=== PATIENT | female | born 1990 | race American Indian/Alaskan Native ===

== ENCOUNTER 2022-03-15 16:45 | Outpatient (CLI) | payer MEDICAID ==
[2022-03-15 17:33] VITALS: BP 96/67
--- NOTE | 2022-03-15 18:17 | Ultrasound Report ---
ULTRASOUND OBSTETRIC LIMITED ULTRASOUND BIOPHYSICAL PROFILE INDICATION / CLINICAL INFORMATION: bpp. COMPARISON: None available. FINDINGS: BREATHING MOVEMENT = 2 GROSS BODY MOVEMENT = 2 TONE = 2 QUALITATIVE AMNIOTIC FLUID VOLUME = 2 TOTAL BIOPHYSICAL SCORE = 8/8 HEART RATE (beats per minute): 130 PRESENTATION: Cephalic. ADDITIONAL FINDINGS: None. IMPRESSION: 1. Biophysical Score = 8/8 Signer Name: Stu Wells MD Signed: 03/15/2022 6:12 PM Workstation Name: [email or web address]
[2022-03-15] MEDS ORDERED: LACTATED RINGERS 500 ML IV ONE (18:43)
== END 2022-03-15 19:00 | disposition home or self-care (01) ==
LOC: TRG 16:45 → APU 16:49 → TRG 19:00
PROVIDERS: ATTEND Student in an Organized Health Care Education/Training Program
DX: Z34.93 Encounter for supervision of normal pregnancy, unspecified, third trimester (principal); Z3A.34 34 weeks gestation of pregnancy
CPT/HCPCS: 59025; 76819

== ENCOUNTER 2022-03-31 13:15 | Outpatient (CLI) | payer MEDICAID ==
[2022-03-31] MEDS ORDERED: LACTATED RINGERS 500 ML IV ONE (13:25)
[2022-03-31 15:52] VITALS: BP 115/79
--- NOTE | 2022-03-31 18:56 | Ultrasound Report ---
ULTRASOUND OBSTETRIC LIMITED ULTRASOUND BIOPHYSICAL PROFILE INDICATION / CLINICAL INFORMATION: wellbeing, IUGR. Clinical Gestational Age (GA): 37.5 weeks.days COMPARISON: 03/15/2022 FINDINGS: BREATHING MOVEMENT = 2 GROSS BODY MOVEMENT = 2 TONE = 2 QUALITATIVE AMNIOTIC FLUID VOLUME = 2 TOTAL BIOPHYSICAL SCORE = 8/8 HEART RATE (beats per minute): 146 PRESENTATION: Cephalic. ADDITIONAL FINDINGS: None. IMPRESSION: 1. Biophysical Score = 8/8 Signer Name: Stu Wells MD Signed: 03/31/2022 6:52 PM Workstation Name: [id number]
== END 2022-03-31 17:50 | disposition home or self-care (01) ==
LOC: TRG 13:15 → APU 13:17 → TRG 17:50
PROVIDERS: ATTEND Obstetrics & Gynecology
DX: O36.8330 Maternal care for abnormalities of the fetal heart rate or rhythm, third trimester, not applicable or unspecified (principal); Z3A.37 37 weeks gestation of pregnancy
CPT/HCPCS: 59025; 76819

== ENCOUNTER 2022-04-06 00:12 | Inpatient (IN) | payer MEDICAID ==
--- NOTE | 2022-04-06 00:17 | History and Physical Report ---
History of Present Illness Date of examination: 04/06/22 Date of admission: 04/06/2022 Chief complaint: I'm here for my induction. History of present illness: Pt is a 32 y.o. @ 39.4 wks who presented for an IOL d/t IUGR. Her last growth and BPP u/s was on 03/24 with the following results: BPP 8/8, EFW 5-7 (10th%). EDC Confirmation: 04/16/2022 Gestational Age: 38.4 weeks on admission Past History : 3 Term Births: 2 Premature Births: 0 Living Children: 2 Para: 2 Mult. Births: 0 Prev : 0 Aborta: 0 Elect. Ab: 0 Spont. Ab: 0 Ectopics: 0 # 1 Delivery date: 2010 Weeks Gestation: term labor: no Delivery type: Hours of labor: 14 Anesthesia type: epidural Delivery location: [facility] Sex: Female weight: [id number] Comments: fetus with dilated kidney on ultrasound, surgery needed @4yo # 2 Delivery date: 2018 Weeks Gestation: term labor: no Delivery type: Hours of labor: 14 Anesthesia type: epidural Delivery location: [facility] [facility] Sex: Male weight: [id number] Comments: fetus with dilated kidney on ultrasound, surgery not needed Past Medical History: Reviewed and updated today: Cellulitis on face- 2020 seen 4 dermatologists and taken 4 antibiotics, seen @[facility] and received IM antibiotic Past Surgical History: Reviewed and updated today: [id number]- 02/2021 Denies any prior history of complications from anesthesia. Denies any history of surgical complications. Family History Summary: First Degree Blood Relative - Has No Known Family History - Entered On: Social History: Smoking History: Patient has never smoked. Risk Factors: Smoked Tobacco Use: Never smoker Smokeless Tobacco Use: Never Counseled to Quit/Cut Down: yes Passive Smoke Exposure: no HIV High Risk Behavior: no Caffeine Use: 0 drinks per day Exercise: no Exercise Counseling: yes Seatbelt Use: 100 % Family History Risk Factors: Family History of MS in 1 Female Relative Age < 65: no Family History of MS in 1 Male Relative Age < 55: no No Dietary Counseling Reason: pn yes PAP Smear History: Date of Last PAP Smear: 06/07/2021 Results: Normal Alcohol Use: no Drug Use: no Past Medical History Anesthesia Complications: negative Anemia: negative Autoimmune Disorder: negative Bleeding Disorder: negative Blood Transfusions: negative Breast Disease: negative Diabetes: negative Heart Disease: negative Hypertension: negative Hepatitis/Liver Disease: negative Kidney Disease/UTI: negative Neurologic/Epilepsy/Migraines: negative Phlebitis/Varicosities: negative Psychiatric: negative Pulmonary Disease/Asthma: negative Thyroid Disease: negative Surgery (Non-microbiological laboratory technician): [id number]- 02/2021 Denies any prior history of complications from anesthesia. Denies any history of surgical complications. Abnormal PAP: negative, normal pap 3 mos ago per pt report TEJAS Exposure: negative Infertility: negative Uterine Anomaly: negative Uterine Surgery (not C/S): negative Other Gynecologic Problems: negative Social Hx: Smoking History: Patient has never smoked. Infection History Hx of STD: none HIV Risk Eval: no Hepatitis B Risk Eval: low risk Personal hx. of genital herpes: no Partner hx. of genital herpes: no Rash, Viral, or Febrile illness since last LMP? no Varicella/Chicken Pox Status: Previous Disease TB Risk: no Genetic History Congenital Heart Defect: Mom: no Dad: no Maame Disease: Mom: no Dad: no Thalassemia Mom: no Dad: no Neural Tube Defect Mom: no Dad: no Down's Syndrome Mom: no Dad: no Clifton-Sachs Mom: no Dad: no Sickle Cell Disease/Trait Mom: no Dad: no Hemophilia Mom: no Dad: no Muscular Dystrophy Mom: no Dad: no Cystic Fibrosis Mom: no Dad: no [place] Chorea Mom: no Dad: no Mental Retardation Mom: no Dad: no Fragile X Mom: no Dad: no Other Genetic/Chromosomal Disorder Mom: no Dad: no Child w/other defect Mom: no Dad: no Enviromental Exposures Enviromental Exposures Reviewed Xray Exposure: no Medication, drug, or alcohol use since LMP: no Chemical/Other Exposure: no Exposure to Cat Liter: no Hx of Parvovirus (Fifth Disease): no Occupational Exposure to Children: none Active Medications (reviewed today): None Current Allergies (reviewed today): No known allergies Past History Past Medical History: other (Cellulitis (face)) Past Surgical History: other (Lipo suction) Family/Genetic History: none Social history: no significant social history - Obstetrical History Expected Date of Delivery: 04/16/22 Actual Gestation: 38 Week(s) 4 Day(s) : 3 Para: 2 Hx # Term Pregnancies: 2 Number of Pregnancies: 0 Spontaneous Abortions: 0 Induced : 0 Number of Living Children: 2 Medications and Allergies Allergies Allergy/AdvReac Type Severity Reaction Status Date / Time No Known Allergies Allergy Verified 03/31/22 15:12 Review of Systems All systems: negative - Physical Exam Cardiovascular: Regular rate Lungs: Positive: Normal air movement Abdomen: Positive: normal appearance, soft Genitourinary (Female): Positive: normal external genitalia, normal perenium Vulva: both: normal Uterus: Positive: enlarged ( uterus) - Obstetrical FHR: category 1 Uterine Contraction Monitor Mode: External Cervical Dilatation: 1 Cervical Effacement Percentage: 50 station: -3 Uterine Contraction Pattern: Irregular Uterine Tone Measurement Phase: Resting Uterine Contraction Intensity: Mild Results Result Diagrams: 04/06/22 01:20 All other labs normal. GBS NEGATIVE HBsAg Screen Negative Negative *1 RPR Non Reactive Non Reactive *2 Rubella Antibodies, IgG 1.21 index Immune >0.99 *3 Non-immune <0.90 Equivocal 0.90 - 0.99 Immune >0.99 ABO Grouping O *4 Rh Factor Positive *5 Please note: Prior records for this patient's ABO / Rh type are not available for additional verification. Antibody Screen Negative Negative *6 Tests: (2) HIV Ab/p24 Ag with Reflex ([id number]) HIV Ab/p24 Ag Screen Non Reactive Non Reactive *31 HIV Negative HIV-1/HIV-2 antibodies and HIV-1 p24 antigen were NOT detected. There is no laboratory evidence of HIV infection. Tests: (3) HCV Antibody reflex to VANNESSA ([id number]) HCV Ab <0.1 s/co ratio 0.0-0.9 *32 Tests: (4) Interpretation: ([id number]) ! Interpretation: SPRCS *33 Negative Not infected with HCV, unless recent infection is suspected or other evidence exists to indicate HCV infection. Assessment and Plan A: 32 y.o. @ 38.4 wks, IOL d/t IUGR. - Patient Problems (1) IUGR (intrauterine growth restriction) affecting care of mother Current Visit: Yes Status: Acute Qualifiers: Fetus number: single or unspecified fetus Trimester: third trimester Qualified Code(s): O36.5930 - Maternal care for other known or suspected poor growth, third trimester, not applicable or unspecified Plan to address problem: Admit to labor and delivery. Initiate IV. Draw admission labs. Pain management: IV pain medication and epidural when desired. Initiate IOL with low dose Pitocin. If cervical exam the same later on this AM will allow pt to shower, eat, then restart Pitocin per protocol. (2) with 38 completed weeks gestation Current Visit: Yes Status: Acute Plan to address problem: Monitor status through EFM.
[2022-04-06] MEDS ORDERED: MINERAL OIL 30 ML ORAL LIQD PO PRN (00:56)
[2022-04-06] MEDS ORDERED: LOPERAMIDE 2 MG CAP PO PRN (00:56)
[2022-04-06] MEDS ORDERED: NALOXONE 0.4 MG/1 ML INJ IV PRN (00:56)
[2022-04-06] MEDS ORDERED: BUTORPHANOL 2 MG/1 ML INJ IV PRN (00:56)
[2022-04-06] MEDS ORDERED: TERBUTALINE 1 MG/1 ML INJ SUB-Q PRN (00:56)
[2022-04-06] MEDS ORDERED: PROMETHAZINE 25 MG TAB PO PRN (00:56)
[2022-04-06] MEDS ORDERED: miSOPROStol 200 MCG TAB PR PRN (00:56)
[2022-04-06] MEDS ORDERED: fentaNYL 100 MCG/2 ML INJ IV PRN (00:56)
[2022-04-06] MEDS ORDERED: METHYLERGONOVINE MALEATE 0.2 MG/ML VIAL IM PRN (00:56)
[2022-04-06] MEDS ORDERED: CARBOPROST TROMETHAMINE 250 MCG/1 ML INJ IM PRN (00:56)
[2022-04-06] MEDS ORDERED: ONDANSETRON 4 MG/2 ML INJ IV PRN (00:56)
[2022-04-06] MEDS ORDERED: ePHEDrine SULFATE 50 MG/1 ML INJ IV PRN (00:56)
[2022-04-06] MEDS ORDERED: OXYTOCIN 10 UNIT/1 ML INJ IM PRN (00:56)
[2022-04-06] MEDS ORDERED: LIDOCAINE (2%) 20 MG/1 ML VIAL 20 ML MDV INFILTRATI ONE (00:56)
[2022-04-06] MEDS ORDERED: ACETAMINOPHEN 325 MG TAB PO PRN (00:56)
[2022-04-06] MEDS ORDERED: OXYTOCIN DRIP 30 UNITS/500 ML BAG IV SCH (01:00)
[2022-04-06] MEDS: LACTATED RINGERS 1,000 ML IV SCH ×2 (02:04→11:54)
[2022-04-06] MEDS: OXYTOCIN DRIP 30 UNITS/500 ML BAG IV SCH ×3 (02:05→12:21)
[2022-04-06 02:13] LABS: Hemoglobin 10.7 gm/dl (10.1-14.3); Mean Corpuscular HGB Conc 35 % (30-34); Mean Corpuscular Volume 90 fl (79-97); Platelet Count 242 K/mm3 (140-440); Red Blood Count 3.44 M/mm3 (3.65-5.03); Red Cell Distribution Width 14.1 % (13.2-15.2)
--- NOTE | 2022-04-06 07:41 | Progress Note ---
Assessment and Plan A: 32 y.o. @ 38.4 wks, IOL d/t IUGR. - Patient Problems (1) IUGR (intrauterine growth restriction) affecting care of mother Current Visit: Yes Status: Acute Qualifiers: Fetus number: single or unspecified fetus Trimester: third trimester Qualified Code(s): O36.5930 - Maternal care for other known or suspected poor growth, third trimester, not applicable or unspecified Plan to address problem: Continue with IOL. Will allow patient to shower, eat. After shower and breakfast, start Pitocin per protocol. (2) with 38 completed weeks gestation Current Visit: Yes Status: Acute Plan to address problem: Monitor status through EFM. Subjective - Subjective Date of service: 04/06/22 Principal diagnosis: IUP @ 38.4 wks, Patient reports: movement normal, no new complaints, no loss of fluid, no vaginal bleeding, no contractions Objective - Vital Signs Vital Signs: Vital Signs - 12hr 04/06/22 04/06/22 04/06/22 00:58 00:59 01:00 Temperature 98.7 F Pulse Rate 97 H 104 H 97 H Respiratory 18 Rate Blood Pressure 112/73 Blood Pressure 112/73 [Right] O2 Sat by Pulse 96 99 Oximetry 04/06/22 04/06/22 04/06/22 01:05 01:10 01:15 Temperature Pulse Rate 115 H 101 H 110 H Respiratory Rate Blood Pressure Blood Pressure [Right] O2 Sat by Pulse 100 99 100 Oximetry 04/06/22 04/06/22 04/06/22 01:20 01:25 01:30 Temperature Pulse Rate 109 H 103 H 102 H Respiratory Rate Blood Pressure Blood Pressure [Right] O2 Sat by Pulse 98 100 99 Oximetry 04/06/22 04/06/22 04/06/22 01:35 01:40 01:45 Temperature Pulse Rate 102 H 110 H 106 H Respiratory Rate Blood Pressure Blood Pressure [Right] O2 Sat by Pulse 100 100 100 Oximetry 04/06/22 04/06/22 04/06/22 01:50 01:55 02:00 Temperature Pulse Rate 109 H 105 H 105 H Respiratory Rate Blood Pressure Blood Pressure [Right] O2 Sat by Pulse 99 100 99 Oximetry 04/06/22 04/06/22 04/06/22 02:05 02:10 02:15 Temperature Pulse Rate 104 H 99 H 101 H Respiratory Rate Blood Pressure Blood Pressure [Right] O2 Sat by Pulse 100 97 100 Oximetry 04/06/22 04/06/22 04/06/22 02:20 02:25 02:30 Temperature Pulse Rate 97 H 96 H 99 H Respiratory Rate Blood Pressure Blood Pressure [Right] O2 Sat by Pulse 99 99 99 Oximetry 04/06/22 04/06/22 04/06/22 02:35 02:40 02:45 Temperature Pulse Rate 100 H 109 H 101 H Respiratory Rate Blood Pressure Blood Pressure [Right] O2 Sat by Pulse 99 99 100 Oximetry 04/06/22 04/06/22 04/06/22 02:50 02:55 03:00 Temperature Pulse Rate 97 H 107 H 92 H Respiratory Rate Blood Pressure Blood Pressure [Right] O2 Sat by Pulse 99 99 99 Oximetry 04/06/22 04/06/22 04/06/22 03:07 03:12 03:17 Temperature Pulse Rate 107 H 98 H 94 H Respiratory Rate Blood Pressure Blood Pressure [Right] O2 Sat by Pulse 100 99 99 Oximetry 04/06/22 04/06/22 04/06/22 03:22 03:27 03:32 Temperature Pulse Rate 107 H 95 H 105 H Respiratory Rate Blood Pressure Blood Pressure [Right] O2 Sat by Pulse 100 99 98 Oximetry 04/06/22 04/06/22 04/06/22 03:37 03:42 03:47 Temperature Pulse Rate 98 H 105 H 103 H Respiratory Rate Blood Pressure Blood Pressure [Right] O2 Sat by Pulse 99 99 99 Oximetry 04/06/22 04/06/22 04/06/22 03:52 03:57 04:02 Temperature Pulse Rate 98 H 101 H 101 H Respiratory Rate Blood Pressure Blood Pressure [Right] O2 Sat by Pulse 99 99 99 Oximetry 04/06/22 04/06/22 04/06/22 04:07 04:12 04:17 Temperature Pulse Rate 100 H 103 H 99 H Respiratory Rate Blood Pressure Blood Pressure [Right] O2 Sat by Pulse 99 99 99 Oximetry 04/06/22 04/06/22 04/06/22 04:22 04:27 04:32 Temperature Pulse Rate 97 H 99 H 98 H Respiratory Rate Blood Pressure Blood Pressure [Right] O2 Sat by Pulse 99 98 99 Oximetry 04/06/22 04/06/22 04/06/22 04:37 04:42 04:47 Temperature Pulse Rate 102 H 97 H 94 H Respiratory Rate Blood Pressure Blood Pressure [Right] O2 Sat by Pulse 99 99 98 Oximetry 04/06/22 04/06/22 04/06/22 04:52 05:05 05:10 Temperature Pulse Rate 99 H 106 H 98 H Respiratory Rate Blood Pressure Blood Pressure [Right] O2 Sat by Pulse 99 99 99 Oximetry 04/06/22 04/06/22 04/06/22 05:15 05:20 05:25 Temperature Pulse Rate 97 H 105 H 94 H Respiratory Rate Blood Pressure Blood Pressure [Right] O2 Sat by Pulse 99 99 99 Oximetry 04/06/22 04/06/22 04/06/22 05:30 05:35 05:40 Temperature Pulse Rate 98 H 108 H 107 H Respiratory Rate Blood Pressure Blood Pressure [Right] O2 Sat by Pulse 99 100 100 Oximetry 04/06/22 04/06/22 04/06/22 05:45 05:50 05:55 Temperature Pulse Rate 95 H 93 H 101 H Respiratory Rate Blood Pressure Blood Pressure [Right] O2 Sat by Pulse 100 100 100 Oximetry 04/06/22 04/06/22 04/06/22 06:00 06:05 06:10 Temperature Pulse Rate 96 H 96 H 94 H Respiratory Rate Blood Pressure Blood Pressure [Right] O2 Sat by Pulse 100 100 100 Oximetry 04/06/22 04/06/22 04/06/22 06:15 06:20 06:25 Temperature Pulse Rate 94 H 98 H 94 H Respiratory Rate Blood Pressure Blood Pressure [Right] O2 Sat by Pulse 100 100 100 Oximetry 04/06/22 04/06/22 04/06/22 06:30 06:35 06:40 Temperature Pulse Rate 95 H 101 H 96 H Respiratory Rate Blood Pressure Blood Pressure [Right] O2 Sat by Pulse 100 100 100 Oximetry 04/06/22 06:45 Temperature Pulse Rate 102 H Respiratory Rate Blood Pressure Blood Pressure [Right] O2 Sat by Pulse 100 Oximetry - Exam Breasts: deferred Cardiovascular: Regular rate Lungs: Normal air movement Abdomen: Present: normal appearance, soft Vulva: both: normal FHR: category 1 Uterine Contraction Monitor Mode: External Cervical Dilatation: 1 Cervical Effacement Percentage: 50 station: -3 Uterine Contraction Pattern: Irregular Uterine Tone Measurement Phase: Resting Uterine Contraction Intensity: Mild Extremities: normal - Labs Labs: Abnormal Labs 04/06/22 01:20 RBC 3.44 L MCHC 35 H Laboratory Results - last 24 hr 04/06/22 04/06/22 04/06/22 01:20 01:20 01:20 WBC 4.7 RBC 3.44 L Hgb 10.7 Hct 31.0 MCV 90 MCH 31 MCHC 35 H RDW 14.1 Plt Count 242 Syphilis IgG/IgM Ab Nonreactive Blood Type O POSITIVE Antibody Screen Negative
[2022-04-06] MEDS ORDERED: DINOPROSTONE 10 MG VAG SUPP VG ONE (19:11)
--- NOTE | 2022-04-06 19:11 | Event Note ---
Date: 04/06/22 Pt cervix unchanged. Will allow dinner and pericare and then place cervidil. plan of care d/w pt and RN at bedside. All questions were addressed and answered. cx /-2 to -3
--- NOTE | 2022-04-06 20:39 | Event Note ---
Date: 04/06/22 (Cervidil placed.) Cervix unchanged. Cervidil placed without difficulty.
--- NOTE | 2022-04-07 05:11 | Progress Note ---
Assessment and Plan A: 32 y.o. @ 38.5 wks, IOL d/t IUGR. - Patient Problems (1) IUGR (intrauterine growth restriction) affecting care of mother Current Visit: Yes Status: Acute Qualifiers: Fetus number: single or unspecified fetus Trimester: third trimester Qualified Code(s): O36.5930 - Maternal care for other known or suspected poor growth, third trimester, not applicable or unspecified Plan to address problem: Continue with IOL. Cervidil to be removed @ 0838am. If cervical exam unchanged, will allow pt to shower and eat. Consider Cytotec to continue IOL or Pitocin per protocol. (2) with 38 completed weeks gestation Current Visit: Yes Status: Acute Plan to address problem: Continue to monitor status through EFM. Subjective - Subjective Date of service: 04/07/22 Principal diagnosis: IUP @ 38.5 wks, IOL d/t IUGR Interval history: Pt with no complaints. " I wish something was happening." Patient reports: movement normal, no new complaints, no loss of fluid, no vaginal bleeding, no contractions Objective - Vital Signs Vital Signs: Vital Signs - 12hr 04/06/22 04/06/22 04/06/22 17:10 17:13 17:15 Temperature Pulse Rate 82 77 76 Respiratory Rate Blood Pressure 114/77 O2 Sat by Pulse 100 100 Oximetry O2 Sat by Pulse Oximetry [ Bilateral] 04/06/22 04/06/22 04/06/22 17:20 17:25 17:30 Temperature Pulse Rate 76 92 H 85 Respiratory Rate Blood Pressure O2 Sat by Pulse 99 100 100 Oximetry O2 Sat by Pulse Oximetry [ Bilateral] 04/06/22 04/06/22 04/06/22 17:35 17:40 17:43 Temperature Pulse Rate 81 82 79 Respiratory Rate Blood Pressure 135/88 O2 Sat by Pulse 100 98 Oximetry O2 Sat by Pulse Oximetry [ Bilateral] 04/06/22 04/06/22 04/06/22 17:45 17:50 17:55 Temperature Pulse Rate 86 75 82 Respiratory Rate Blood Pressure O2 Sat by Pulse 100 100 99 Oximetry O2 Sat by Pulse Oximetry [ Bilateral] 04/06/22 04/06/22 04/06/22 18:00 18:08 18:13 Temperature Pulse Rate 77 83 93 H Respiratory Rate Blood Pressure O2 Sat by Pulse 99 99 99 Oximetry O2 Sat by Pulse Oximetry [ Bilateral] 04/06/22 04/06/22 04/06/22 18:18 18:23 18:28 Temperature Pulse Rate 86 83 84 Respiratory Rate Blood Pressure O2 Sat by Pulse 100 99 100 Oximetry O2 Sat by Pulse Oximetry [ Bilateral] 04/06/22 04/06/22 04/06/22 18:33 18:38 18:43 Temperature Pulse Rate 85 95 H 93 H Respiratory Rate Blood Pressure O2 Sat by Pulse 100 100 99 Oximetry O2 Sat by Pulse Oximetry [ Bilateral] 04/06/22 04/06/22 04/06/22 18:48 18:56 19:01 Temperature Pulse Rate 88 82 96 H Respiratory Rate Blood Pressure O2 Sat by Pulse 99 100 99 Oximetry O2 Sat by Pulse Oximetry [ Bilateral] 04/06/22 04/06/22 04/06/22 19:06 19:11 19:16 Temperature Pulse Rate 94 H 102 H 97 H Respiratory Rate Blood Pressure O2 Sat by Pulse 99 99 100 Oximetry O2 Sat by Pulse Oximetry [ Bilateral] 04/06/22 04/06/22 04/06/22 19:21 19:26 19:29 Temperature Pulse Rate 98 H 99 H 99 H Respiratory Rate Blood Pressure 116/75 O2 Sat by Pulse 99 99 86 Oximetry O2 Sat by Pulse Oximetry [ Bilateral] 04/06/22 04/06/22 04/06/22 19:48 20:28 20:33 Temperature 98.4 F Pulse Rate 216 H 114 H Respiratory 18 Rate Blood Pressure 108/72 O2 Sat by Pulse 85 98 Oximetry O2 Sat by Pulse 99 Oximetry [ Bilateral] 04/06/22 04/06/22 04/06/22 20:38 20:43 20:48 Temperature Pulse Rate 103 H 94 H 99 H Respiratory Rate Blood Pressure O2 Sat by Pulse 99 99 99 Oximetry O2 Sat by Pulse Oximetry [ Bilateral] 04/06/22 04/06/22 04/06/22 20:53 20:58 21:03 Temperature Pulse Rate 100 H 99 H 100 H Respiratory Rate Blood Pressure O2 Sat by Pulse 100 99 99 Oximetry O2 Sat by Pulse Oximetry [ Bilateral] 04/06/22 04/06/22 04/06/22 21:08 21:13 21:18 Temperature Pulse Rate 88 104 H 92 H Respiratory Rate Blood Pressure O2 Sat by Pulse 99 99 98 Oximetry O2 Sat by Pulse Oximetry [ Bilateral] 04/06/22 04/06/22 04/06/22 21:23 21:28 21:33 Temperature Pulse Rate 99 H 91 H 90 Respiratory Rate Blood Pressure O2 Sat by Pulse 99 99 100 Oximetry O2 Sat by Pulse Oximetry [ Bilateral] 04/06/22 04/06/22 04/06/22 21:36 21:38 21:43 Temperature Pulse Rate 90 91 H 95 H Respiratory Rate Blood Pressure 109/75 O2 Sat by Pulse 99 100 Oximetry O2 Sat by Pulse Oximetry [ Bilateral] 04/06/22 04/06/22 04/06/22 21:48 21:53 21:58 Temperature Pulse Rate 95 H 95 H 99 H Respiratory Rate Blood Pressure O2 Sat by Pulse 99 99 99 Oximetry O2 Sat by Pulse Oximetry [ Bilateral] 04/06/22 04/06/22 04/06/22 22:03 22:08 22:13 Temperature Pulse Rate 103 H 105 H 99 H Respiratory Rate Blood Pressure O2 Sat by Pulse 99 100 98 Oximetry O2 Sat by Pulse Oximetry [ Bilateral] 04/06/22 04/06/22 04/06/22 22:18 22:23 22:28 Temperature Pulse Rate 100 H 102 H 98 H Respiratory Rate Blood Pressure O2 Sat by Pulse 99 98 99 Oximetry O2 Sat by Pulse Oximetry [ Bilateral] 04/06/22 04/06/22 04/06/22 22:33 22:36 22:38 Temperature Pulse Rate 90 88 95 H Respiratory Rate Blood Pressure 114/78 O2 Sat by Pulse 99 100 Oximetry O2 Sat by Pulse Oximetry [ Bilateral] 04/06/22 04/06/22 04/06/22 22:43 22:48 22:53 Temperature Pulse Rate 95 H 101 H 97 H Respiratory Rate Blood Pressure O2 Sat by Pulse 100 99 99 Oximetry O2 Sat by Pulse Oximetry [ Bilateral] 04/06/22 04/06/22 04/06/22 22:58 23:04 23:12 Temperature Pulse Rate 108 H 117 H 93 H Respiratory Rate Blood Pressure O2 Sat by Pulse 99 95 100 Oximetry O2 Sat by Pulse Oximetry [ Bilateral] 04/06/22 04/06/22 04/06/22 23:17 23:19 23:22 Temperature Pulse Rate 90 88 92 H Respiratory Rate Blood Pressure 114/73 O2 Sat by Pulse 100 100 Oximetry O2 Sat by Pulse Oximetry [ Bilateral] 04/06/22 04/06/22 04/06/22 23:27 23:32 23:36 Temperature Pulse Rate 83 84 86 Respiratory Rate Blood Pressure 121/79 O2 Sat by Pulse 100 100 Oximetry O2 Sat by Pulse Oximetry [ Bilateral] 04/06/22 04/06/22 04/06/22 23:37 23:42 23:47 Temperature Pulse Rate 89 84 84 Respiratory Rate Blood Pressure O2 Sat by Pulse 100 100 99 Oximetry O2 Sat by Pulse Oximetry [ Bilateral] 04/06/22 04/06/22 04/07/22 23:52 23:57 00:02 Temperature Pulse Rate 84 91 H 82 Respiratory Rate Blood Pressure O2 Sat by Pulse 99 100 100 Oximetry O2 Sat by Pulse Oximetry [ Bilateral] 04/07/22 04/07/22 04/07/22 00:07 00:12 00:17 Temperature Pulse Rate 86 83 85 Respiratory Rate Blood Pressure O2 Sat by Pulse 99 100 100 Oximetry O2 Sat by Pulse Oximetry [ Bilateral] 04/07/22 04/07/22 04/07/22 00:22 00:27 00:36 Temperature Pulse Rate 89 86 91 H Respiratory Rate Blood Pressure O2 Sat by Pulse 100 100 100 Oximetry O2 Sat by Pulse Oximetry [ Bilateral] 04/07/22 04/07/22 04/07/22 00:37 00:41 00:46 Temperature Pulse Rate 83 84 89 Respiratory Rate Blood Pressure 138/80 O2 Sat by Pulse 100 100 Oximetry O2 Sat by Pulse Oximetry [ Bilateral] 04/07/22 04/07/22 04/07/22 00:51 00:56 01:01 Temperature Pulse Rate 85 83 79 Respiratory Rate Blood Pressure O2 Sat by Pulse 100 100 100 Oximetry O2 Sat by Pulse Oximetry [ Bilateral] 04/07/22 04/07/22 04/07/22 01:06 01:11 01:16 Temperature Pulse Rate 89 92 H 91 H Respiratory Rate Blood Pressure O2 Sat by Pulse 91 100 100 Oximetry O2 Sat by Pulse Oximetry [ Bilateral] 04/07/22 04/07/22 04/07/22 01:24 01:29 01:34 Temperature Pulse Rate 95 H 90 77 Respiratory Rate Blood Pressure O2 Sat by Pulse 98 100 100 Oximetry O2 Sat by Pulse Oximetry [ Bilateral] 04/07/22 04/07/22 04/07/22 01:36 01:39 01:44 Temperature Pulse Rate 78 71 88 Respiratory Rate Blood Pressure 111/73 O2 Sat by Pulse 100 99 Oximetry O2 Sat by Pulse Oximetry [ Bilateral] 04/07/22 04/07/22 04/07/22 01:49 01:54 01:59 Temperature Pulse Rate 88 88 87 Respiratory Rate Blood Pressure O2 Sat by Pulse 100 99 99 Oximetry O2 Sat by Pulse Oximetry [ Bilateral] 04/07/22 04/07/22 04/07/22 02:04 02:09 02:14 Temperature Pulse Rate 86 84 93 H Respiratory Rate Blood Pressure O2 Sat by Pulse 99 100 99 Oximetry O2 Sat by Pulse Oximetry [ Bilateral] 04/07/22 04/07/22 04/07/22 02:19 02:24 02:29 Temperature Pulse Rate 84 94 H 97 H Respiratory Rate Blood Pressure O2 Sat by Pulse 99 98 99 Oximetry O2 Sat by Pulse Oximetry [ Bilateral] 04/07/22 04/07/22 04/07/22 02:36 02:37 02:42 Temperature Pulse Rate 93 H 88 89 Respiratory Rate Blood Pressure 132/89 O2 Sat by Pulse 100 100 Oximetry O2 Sat by Pulse Oximetry [ Bilateral] 04/07/22 04/07/22 04/07/22 02:47 02:52 02:57 Temperature Pulse Rate 94 H 102 H 89 Respiratory Rate Blood Pressure O2 Sat by Pulse 99 99 99 Oximetry O2 Sat by Pulse Oximetry [ Bilateral] 04/07/22 04/07/22 04/07/22 03:02 03:07 03:12 Temperature Pulse Rate 87 77 90 Respiratory Rate Blood Pressure O2 Sat by Pulse 100 100 100 Oximetry O2 Sat by Pulse Oximetry [ Bilateral] 04/07/22 04/07/22 04/07/22 03:17 03:22 03:27 Temperature Pulse Rate 94 H 86 93 H Respiratory Rate Blood Pressure O2 Sat by Pulse 99 100 100 Oximetry O2 Sat by Pulse Oximetry [ Bilateral] 04/07/22 04/07/22 04/07/22 03:32 03:36 03:37 Temperature Pulse Rate 82 79 86 Respiratory Rate Blood Pressure 111/73 O2 Sat by Pulse 100 100 Oximetry O2 Sat by Pulse Oximetry [ Bilateral] 04/07/22 04/07/22 04/07/22 03:42 03:47 03:52 Temperature Pulse Rate 88 89 96 H Respiratory Rate Blood Pressure O2 Sat by Pulse 99 99 99 Oximetry O2 Sat by Pulse Oximetry [ Bilateral] 04/07/22 04/07/22 04/07/22 03:57 04:02 04:07 Temperature Pulse Rate 87 91 H 100 H Respiratory Rate Blood Pressure O2 Sat by Pulse 98 99 98 Oximetry O2 Sat by Pulse Oximetry [ Bilateral] 04/07/22 04/07/22 04/07/22 04:12 04:17 04:22 Temperature Pulse Rate 91 H 88 85 Respiratory Rate Blood Pressure O2 Sat by Pulse 99 98 98 Oximetry O2 Sat by Pulse Oximetry [ Bilateral] 04/07/22 04/07/22 04/07/22 04:27 04:32 04:36 Temperature Pulse Rate 87 90 88 Respiratory Rate Blood Pressure 110/69 O2 Sat by Pulse 98 97 Oximetry O2 Sat by Pulse Oximetry [ Bilateral] 04/07/22 04/07/22 04/07/22 04:37 04:43 04:48 Temperature Pulse Rate 90 105 H 90 Respiratory Rate Blood Pressure O2 Sat by Pulse 99 100 99 Oximetry O2 Sat by Pulse Oximetry [ Bilateral] 04/07/22 04/07/22 04/07/22 04:53 04:58 05:03 Temperature Pulse Rate 96 H 82 87 Respiratory Rate Blood Pressure O2 Sat by Pulse 99 99 99 Oximetry O2 Sat by Pulse Oximetry [ Bilateral] - Exam Narrative Exam: Cervidil in place. Cardiovascular: Regular rate Lungs: Normal air movement Abdomen: Present: normal appearance, soft Vulva: both: normal Uterus: Present: normal FHR: category 1 Cervical Dilatation: 1 (Cervical exam from 2037 on 04/07) Cervical Effacement Percentage: 50 station: -3 Uterine Contraction Pattern: Irregular Uterine Tone Measurement Phase: Resting Uterine Contraction Intensity: Mild - Labs Labs: Abnormal Labs 04/06/22 01:20 RBC 3.44 L MCHC 35 H Laboratory Results - last 24 hr 04/06/22 10:40 SARS-CoV-2 (PCR) Negative
[2022-04-07] MEDS ORDERED: miSOPROStol 25 MCG TAB PO PRN ×2 (13:07→17:30)
--- NOTE | 2022-04-07 20:04 | Progress Note ---
Assessment and Plan A: 32 y.o. @ 38.5 wks, IOL d/t IUGR. - Patient Problems (1) IUGR (intrauterine growth restriction) affecting care of mother Current Visit: Yes Status: Acute Qualifiers: Fetus number: single or unspecified fetus Trimester: third trimester Qualified Code(s): O36.5930 - Maternal care for other known or suspected poor growth, third trimester, not applicable or unspecified Plan to address problem: Continue with IOL. Will change order to vaginal doses of Cytotec. - Assess contraction pattern. - Consider Pitocin if contraction pattern dose not allow for additional doses of Cytotec. (2) with 38 completed weeks gestation Current Visit: Yes Status: Acute Plan to address problem: Continue to monitor status through EFM. Subjective - Subjective Date of service: 04/07/22 Principal diagnosis: IUP @ 38.5 wks, IOL d/t IUGR Interval history: Discussed with patient plan for the night. Will use vaginal Cytotec and assess contraction pattern. She had a dose of Cytotec PO at ~ 1700. Pt aware of plan and will agrees. Patient reports: new complaints, movement normal, contractions (Starting to feel some contractions. ), no loss of fluid, no vaginal bleeding Objective - Vital Signs Vital Signs: Vital Signs - 12hr 04/07/22 04/07/22 04/07/22 08:00 08:05 08:10 Temperature Pulse Rate 96 H 85 90 Respiratory Rate Blood Pressure Blood Pressure [Right] O2 Sat by Pulse 99 99 100 Oximetry O2 Sat by Pulse Oximetry [ Bilateral] 04/07/22 04/07/22 04/07/22 08:15 08:20 08:25 Temperature Pulse Rate 87 86 88 Respiratory Rate Blood Pressure Blood Pressure [Right] O2 Sat by Pulse 100 100 100 Oximetry O2 Sat by Pulse Oximetry [ Bilateral] 04/07/22 04/07/22 04/07/22 08:30 08:35 08:36 Temperature Pulse Rate 87 94 H 81 Respiratory Rate Blood Pressure 121/84 Blood Pressure [Right] O2 Sat by Pulse 99 99 Oximetry O2 Sat by Pulse Oximetry [ Bilateral] 04/07/22 04/07/22 04/07/22 08:40 08:45 08:50 Temperature Pulse Rate 98 H 88 82 Respiratory Rate Blood Pressure Blood Pressure [Right] O2 Sat by Pulse 99 98 100 Oximetry O2 Sat by Pulse Oximetry [ Bilateral] 04/07/22 04/07/22 04/07/22 08:55 09:00 09:05 Temperature Pulse Rate 85 86 91 H Respiratory Rate Blood Pressure Blood Pressure [Right] O2 Sat by Pulse 99 99 100 Oximetry O2 Sat by Pulse Oximetry [ Bilateral] 04/07/22 04/07/22 04/07/22 09:10 09:14 09:15 Temperature 98.5 F Pulse Rate 86 89 93 H Respiratory 16 Rate Blood Pressure Blood Pressure 121/84 [Right] O2 Sat by Pulse 100 100 98 Oximetry O2 Sat by Pulse Oximetry [ Bilateral] 04/07/22 04/07/22 04/07/22 10:32 10:37 10:42 Temperature Pulse Rate 89 94 H 84 Respiratory Rate Blood Pressure Blood Pressure [Right] O2 Sat by Pulse 100 100 99 Oximetry O2 Sat by Pulse Oximetry [ Bilateral] 04/07/22 04/07/22 04/07/22 10:47 10:52 10:57 Temperature Pulse Rate 95 H 90 89 Respiratory Rate Blood Pressure Blood Pressure [Right] O2 Sat by Pulse 100 100 100 Oximetry O2 Sat by Pulse Oximetry [ Bilateral] 04/07/22 04/07/22 04/07/22 11:02 11:07 11:12 Temperature Pulse Rate 95 H 101 H 92 H Respiratory Rate Blood Pressure Blood Pressure [Right] O2 Sat by Pulse 100 100 100 Oximetry O2 Sat by Pulse Oximetry [ Bilateral] 04/07/22 04/07/22 04/07/22 11:17 11:22 12:43 Temperature Pulse Rate 94 H 91 H Respiratory Rate Blood Pressure Blood Pressure [Right] O2 Sat by Pulse 100 100 81 L Oximetry O2 Sat by Pulse Oximetry [ Bilateral] 04/07/22 04/07/22 04/07/22 17:36 17:37 19:32 Temperature 98.7 F Pulse Rate 92 H 92 H Respiratory 16 Rate Blood Pressure 110/77 Blood Pressure 110/77 [Right] O2 Sat by Pulse 84 Oximetry O2 Sat by Pulse Oximetry [ Bilateral] 04/07/22 04/07/22 04/07/22 19:33 19:35 19:38 Temperature 98.8 F 98.8 F Pulse Rate 81 Respiratory Rate Blood Pressure 138/91 Blood Pressure [Right] O2 Sat by Pulse Oximetry O2 Sat by Pulse Oximetry [ Bilateral] 04/07/22 04/07/22 04/07/22 19:39 19:51 19:56 Temperature Pulse Rate 72 80 Respiratory Rate Blood Pressure Blood Pressure [Right] O2 Sat by Pulse 100 100 Oximetry O2 Sat by Pulse 98 Oximetry [ Bilateral] - Exam Cardiovascular: Regular rate Lungs: Normal air movement Abdomen: Present: normal appearance, soft Vulva: both: normal FHR: category 1 Uterine Contraction Monitor Mode: External Cervical Dilatation: 1.5 Cervical Effacement Percentage: 70 station: -3 Uterine Contraction Pattern: Regular Uterine Tone Measurement Phase: Resting Uterine Contraction Intensity: Moderate Extremities: normal - Labs Labs: Abnormal Labs 04/06/22 01:20 RBC 3.44 L MCHC 35 H
[2022-04-07] MEDS ORDERED: miSOPROStol 25 MCG TAB VG ONE (21:00)
--- NOTE | 2022-04-07 21:34 | Event Note ---
Date: 04/07/22 Cervical exam unchanged. Pt boni too much for additional doses of Cytotec. Will allow patient to eat dinner and then start Pitocin per protocol. Currently category 1 monitor strip.
[2022-04-07] MEDS: LACTATED RINGERS 1,000 ML IV SCH (23:20)
[2022-04-07] MEDS ORDERED: OXYTOCIN DRIP 30 UNITS/500 ML BAG IV SCH (23:45)
[2022-04-08] MEDS ORDERED: miSOPROStol 25 MCG TAB VG ONE (01:00)
--- NOTE | 2022-04-08 05:07 | Progress Note ---
Assessment and Plan A: 32 y.o. @ 38.6 wks, IOL d/t IUGR. SROM. - Patient Problems (1) IUGR (intrauterine growth restriction) affecting care of mother Current Visit: Yes Status: Acute Qualifiers: Fetus number: single or unspecified fetus Trimester: third trimester Qualified Code(s): O36.5930 - Maternal care for other known or suspected poor growth, third trimester, not applicable or unspecified Plan to address problem: Continue to increase Pitocin per protocol. SROM 0455: Limit vaginal exams. Anticipate . (2) with 38 completed weeks gestation Current Visit: Yes Status: Acute Plan to address problem: Continue to monitor status through EFM. Subjective - Subjective Date of service: 04/08/22 Principal diagnosis: IUP @ 38.6 wks, IOL d/t IUGR Interval history: Was called to the room d/t pt with c/o SROM. Patient reports: new complaints, loss of fluid (for clear fluid), movement normal, contractions (Starting to feel some contractions. ), no vaginal bleeding Objective - Vital Signs Vital Signs: Vital Signs - 12hr 04/07/22 04/07/22 04/07/22 17:36 17:37 19:32 Temperature 98.7 F Pulse Rate 92 H 92 H Respiratory 16 Rate Blood Pressure 110/77 Blood Pressure 110/77 [Right] O2 Sat by Pulse 84 Oximetry O2 Sat by Pulse Oximetry [ Bilateral] 04/07/22 04/07/22 04/07/22 19:33 19:35 19:38 Temperature 98.8 F 98.8 F Pulse Rate 81 Respiratory Rate Blood Pressure 138/91 Blood Pressure [Right] O2 Sat by Pulse Oximetry O2 Sat by Pulse Oximetry [ Bilateral] 04/07/22 04/07/22 04/07/22 19:39 19:51 19:56 Temperature Pulse Rate 72 80 Respiratory Rate Blood Pressure Blood Pressure [Right] O2 Sat by Pulse 100 100 Oximetry O2 Sat by Pulse 98 Oximetry [ Bilateral] 04/07/22 04/07/22 04/07/22 20:01 20:06 20:11 Temperature Pulse Rate 73 74 73 Respiratory Rate Blood Pressure Blood Pressure [Right] O2 Sat by Pulse 100 100 100 Oximetry O2 Sat by Pulse Oximetry [ Bilateral] 07/28/22 07/28/22 07/28/22 20:16 20:21 20:28 Temperature Pulse Rate 70 75 85 Respiratory Rate Blood Pressure Blood Pressure [Right] O2 Sat by Pulse 100 99 100 Oximetry O2 Sat by Pulse Oximetry [ Bilateral] 04/07/22 04/07/22 04/07/22 20:33 20:38 20:43 Temperature Pulse Rate 72 76 76 Respiratory Rate Blood Pressure Blood Pressure [Right] O2 Sat by Pulse 100 99 99 Oximetry O2 Sat by Pulse Oximetry [ Bilateral] 04/07/22 04/07/22 04/07/22 20:48 20:53 20:59 Temperature Pulse Rate 81 70 89 Respiratory Rate Blood Pressure Blood Pressure [Right] O2 Sat by Pulse 99 100 100 Oximetry O2 Sat by Pulse Oximetry [ Bilateral] 04/07/22 04/07/22 04/07/22 21:04 21:09 21:12 Temperature Pulse Rate 93 H 70 97 H Respiratory Rate Blood Pressure Blood Pressure [Right] O2 Sat by Pulse 99 100 94 Oximetry O2 Sat by Pulse Oximetry [ Bilateral] 04/07/22 04/07/22 04/07/22 21:15 21:19 21:20 Temperature Pulse Rate 97 H 86 88 Respiratory Rate Blood Pressure Blood Pressure [Right] O2 Sat by Pulse 98 93 92 Oximetry O2 Sat by Pulse Oximetry [ Bilateral] 04/07/22 04/07/22 04/07/22 21:40 21:46 21:53 Temperature Pulse Rate 130 H 89 Respiratory Rate Blood Pressure Blood Pressure [Right] O2 Sat by Pulse 86 0 L 0 L Oximetry O2 Sat by Pulse Oximetry [ Bilateral] 04/07/22 04/07/22 04/07/22 21:55 21:59 22:04 Temperature Pulse Rate 121 H Respiratory Rate Blood Pressure Blood Pressure [Right] O2 Sat by Pulse 82 L 86 82 L Oximetry O2 Sat by Pulse Oximetry [ Bilateral] 04/07/22 04/07/22 04/07/22 22:17 22:22 22:30 Temperature Pulse Rate Respiratory Rate Blood Pressure Blood Pressure [Right] O2 Sat by Pulse 83 L 89 85 Oximetry O2 Sat by Pulse Oximetry [ Bilateral] 04/07/22 04/07/22 04/07/22 22:34 22:36 22:39 Temperature Pulse Rate 92 H 84 87 Respiratory Rate Blood Pressure 94/69 Blood Pressure [Right] O2 Sat by Pulse 87 100 Oximetry O2 Sat by Pulse Oximetry [ Bilateral] 04/07/22 04/07/22 04/07/22 22:41 22:44 22:49 Temperature 98.3 F Pulse Rate 79 78 Respiratory Rate Blood Pressure Blood Pressure [Right] O2 Sat by Pulse 100 100 Oximetry O2 Sat by Pulse Oximetry [ Bilateral] 04/07/22 04/07/22 04/07/22 22:54 22:59 23:04 Temperature Pulse Rate 82 90 81 Respiratory Rate Blood Pressure Blood Pressure [Right] O2 Sat by Pulse 100 100 100 Oximetry O2 Sat by Pulse Oximetry [ Bilateral] 04/07/22 04/07/22 04/07/22 23:09 23:14 23:19 Temperature Pulse Rate 85 99 H 90 Respiratory Rate Blood Pressure Blood Pressure [Right] O2 Sat by Pulse 100 100 100 Oximetry O2 Sat by Pulse Oximetry [ Bilateral] 04/07/22 04/07/22 04/07/22 23:24 23:29 23:34 Temperature Pulse Rate 87 83 84 Respiratory Rate Blood Pressure Blood Pressure [Right] O2 Sat by Pulse 100 100 100 Oximetry O2 Sat by Pulse Oximetry [ Bilateral] 04/07/22 04/07/22 04/07/22 23:39 23:44 23:49 Temperature Pulse Rate 86 83 89 Respiratory Rate Blood Pressure Blood Pressure [Right] O2 Sat by Pulse 100 100 100 Oximetry O2 Sat by Pulse Oximetry [ Bilateral] 04/07/22 04/07/22 04/08/22 23:54 23:59 00:04 Temperature Pulse Rate 97 H 88 91 H Respiratory Rate Blood Pressure Blood Pressure [Right] O2 Sat by Pulse 100 100 100 Oximetry O2 Sat by Pulse Oximetry [ Bilateral] 04/08/22 04/08/22 04/08/22 00:09 00:14 00:19 Temperature Pulse Rate 85 87 96 H Respiratory Rate Blood Pressure Blood Pressure [Right] O2 Sat by Pulse 100 100 100 Oximetry O2 Sat by Pulse Oximetry [ Bilateral] 04/08/22 04/08/22 04/08/22 00:28 00:33 00:38 Temperature Pulse Rate 87 83 83 Respiratory Rate Blood Pressure Blood Pressure [Right] O2 Sat by Pulse 100 100 100 Oximetry O2 Sat by Pulse Oximetry [ Bilateral] 04/08/22 04/08/22 04/08/22 00:43 00:48 00:53 Temperature Pulse Rate 81 81 80 Respiratory Rate Blood Pressure Blood Pressure [Right] O2 Sat by Pulse 100 100 100 Oximetry O2 Sat by Pulse Oximetry [ Bilateral] 04/08/22 04/08/22 04/08/22 00:58 01:03 01:08 Temperature Pulse Rate 78 74 77 Respiratory Rate Blood Pressure Blood Pressure [Right] O2 Sat by Pulse 100 100 100 Oximetry O2 Sat by Pulse Oximetry [ Bilateral] 04/08/22 04/08/22 04/08/22 01:13 01:18 01:23 Temperature Pulse Rate 79 79 79 Respiratory Rate Blood Pressure Blood Pressure [Right] O2 Sat by Pulse 100 100 100 Oximetry O2 Sat by Pulse Oximetry [ Bilateral] 04/08/22 04/08/22 04/08/22 01:28 01:33 01:38 Temperature Pulse Rate 80 80 81 Respiratory Rate Blood Pressure Blood Pressure [Right] O2 Sat by Pulse 100 100 100 Oximetry O2 Sat by Pulse Oximetry [ Bilateral] 04/08/22 04/08/22 04/08/22 01:43 01:48 01:53 Temperature Pulse Rate 80 79 83 Respiratory Rate Blood Pressure Blood Pressure [Right] O2 Sat by Pulse 100 100 100 Oximetry O2 Sat by Pulse Oximetry [ Bilateral] 04/08/22 04/08/22 04/08/22 01:58 02:03 02:08 Temperature Pulse Rate 86 78 79 Respiratory Rate Blood Pressure Blood Pressure [Right] O2 Sat by Pulse 100 100 100 Oximetry O2 Sat by Pulse Oximetry [ Bilateral] 04/08/22 04/08/22 04/08/22 02:20 02:21 02:25 Temperature 98.4 F Pulse Rate 90 86 81 Respiratory Rate Blood Pressure 127/63 Blood Pressure [Right] O2 Sat by Pulse 100 100 Oximetry O2 Sat by Pulse Oximetry [ Bilateral] 04/08/22 04/08/22 04/08/22 02:30 02:35 02:40 Temperature Pulse Rate 91 H 85 76 Respiratory Rate Blood Pressure Blood Pressure [Right] O2 Sat by Pulse 100 100 100 Oximetry O2 Sat by Pulse Oximetry [ Bilateral] 04/08/22 04/08/22 04/08/22 02:45 02:50 02:55 Temperature Pulse Rate 79 76 88 Respiratory Rate Blood Pressure Blood Pressure [Right] O2 Sat by Pulse 100 100 100 Oximetry O2 Sat by Pulse Oximetry [ Bilateral] 04/08/22 04/08/22 04/08/22 03:00 03:05 03:10 Temperature Pulse Rate 73 77 81 Respiratory Rate Blood Pressure Blood Pressure [Right] O2 Sat by Pulse 100 100 100 Oximetry O2 Sat by Pulse Oximetry [ Bilateral] 04/08/22 04/08/22 04/08/22 03:15 03:20 03:25 Temperature Pulse Rate 84 88 76 Respiratory Rate Blood Pressure Blood Pressure [Right] O2 Sat by Pulse 100 100 100 Oximetry O2 Sat by Pulse Oximetry [ Bilateral] 04/08/22 04/08/22 04/08/22 03:30 03:35 03:41 Temperature Pulse Rate 78 84 90 Respiratory Rate Blood Pressure Blood Pressure [Right] O2 Sat by Pulse 100 100 99 Oximetry O2 Sat by Pulse Oximetry [ Bilateral] 04/08/22 04/08/22 04/08/22 03:46 03:51 03:56 Temperature Pulse Rate 78 82 70 Respiratory Rate Blood Pressure Blood Pressure [Right] O2 Sat by Pulse 100 100 100 Oximetry O2 Sat by Pulse Oximetry [ Bilateral] 04/08/22 04/08/22 04/08/22 04:01 04:06 04:11 Temperature Pulse Rate 72 77 86 Respiratory Rate Blood Pressure Blood Pressure [Right] O2 Sat by Pulse 100 100 100 Oximetry O2 Sat by Pulse Oximetry [ Bilateral] 04/08/22 04/08/22 04/08/22 04:16 04:21 04:26 Temperature Pulse Rate 74 77 67 Respiratory Rate Blood Pressure Blood Pressure [Right] O2 Sat by Pulse 100 100 100 Oximetry O2 Sat by Pulse Oximetry [ Bilateral] 04/08/22 04/08/22 04/08/22 04:31 04:36 04:41 Temperature Pulse Rate 69 68 70 Respiratory Rate Blood Pressure Blood Pressure [Right] O2 Sat by Pulse 100 100 100 Oximetry O2 Sat by Pulse Oximetry [ Bilateral] 04/08/22 04/08/22 04/08/22 04:46 04:51 04:56 Temperature Pulse Rate 76 72 73 Respiratory Rate Blood Pressure Blood Pressure [Right] O2 Sat by Pulse 100 100 100 Oximetry O2 Sat by Pulse Oximetry [ Bilateral] 04/08/22 05:01 Temperature Pulse Rate 90 Respiratory Rate Blood Pressure Blood Pressure [Right] O2 Sat by Pulse 100 Oximetry O2 Sat by Pulse Oximetry [ Bilateral] - Exam Narrative Exam: Was called to the room d/t SROM. Large amount of clear fluid noted on bed upon arrival to room. Cervical exam unchanged. Breasts: deferred Cardiovascular: Regular rate Lungs: Normal air movement Abdomen: Present: normal appearance, soft Vulva: both: normal Uterus: Present: normal FHR: category 1 Uterine Contraction Monitor Mode: External Cervical Dilatation: 1.5 (SROM clear fluid) Cervical Effacement Percentage: 70 station: -3 Uterine Contraction Pattern: Regular Uterine Tone Measurement Phase: Resting Uterine Contraction Intensity: Moderate Extremities: normal - Labs Labs: Abnormal Labs 04/06/22 01:20 RBC 3.44 L MCHC 35 H
[2022-04-08] MEDS: LACTATED RINGERS 1,000 ML IV SCH (06:43)
[2022-04-08] MEDS ORDERED: fentaNYL-BUPIV 2 MCG/ML-0.125% 200 MCG/100 ML BAG EPIDURAL SCH (08:00)
[2022-04-08] MEDS ORDERED: ePHEDrine SULFATE 50 MG/1 ML INJ IV PRN (08:30)
[2022-04-08] MEDS ORDERED: NALOXONE 0.4 MG/1 ML INJ IV PRN (08:30)
--- NOTE | 2022-04-08 08:44 | Anesthesia Consultation ---
Anesthesia Consult and Med Hx Date of service: 04/08/22 - Airway Anesthetic Teeth Evaluation: Poor ROM Head & Neck: Adequate Mental/Hyoid Distance: Adequate Mallampati Class: Class II Intubation Access Assessment: Probably Good - Pulmonary Exam CTA: Yes - Cardiac Exam Cardiac Exam: RRR - Pre-Anesthesia Comment Pre-Anesthesia Comments: Liposuction 2020 no anesthesia complications - Pulmonary Hx Smoking: No Hx Asthma: No - Cardiovascular System Hx Hypertension: No - Central Nervous System Hx Seizures: No Hx Psychiatric Problems: No - Endocrine Hx Renal Disease: No Hx Hypothyroidism: No Hx Hyperthyroidism: No - Hematic Hx Anemia: No Hx Sickle Cell Disease: No - Other Systems Hx Alcohol Use: No Hx Substance Use: No Hx Obesity: No
--- NOTE | 2022-04-08 08:49 | Progress Note ---
Labor Epidural - Labor Epidural Start Time: 08:03 Stop Time: 08:14 Performed by:: YVONNE LEWIS Procedure: Patient is requesting epidural for labor pain. H&P and labs reviewed. Procedure explained, questions answered, consent obtained. Patient placed in sitting position with monitors applied. Timeout performed immediately before start of procedure. Prep/drape in usual sterile fashion. Skin localized 3 mL 1% lidocaine at L[3]-L[4] interspace. 17-gauge Touhy epidural needle advanced to GUICHO with saline at [8] cm. No blood/CSF noted via epidural needle x 1 attempt. Epidural catheter advanced to [12] cm. Negative aspiration for blood and CSF via catheter, negative response to test dose 3 ml 1.5% lidocaine w/ Epi. Sterile dressing applied followed by tape reinforcement. Patient tolerated procedure well. No immediate complications noted.
--- NOTE | 2022-04-08 09:02 | Progress Note ---
Assessment and Plan - Patient Problems (1) IUGR (intrauterine growth restriction) affecting care of mother Current Visit: Yes Status: Acute Qualifiers: Fetus number: single or unspecified fetus Trimester: third trimester Qualified Code(s): O36.5930 - Maternal care for other known or suspected poor growth, third trimester, not applicable or unspecified Plan to address problem: pitocin off at 855a. Pt s/p epidural, position changed, now Right lateral. Will ? restart Pitocin ~15-30mins. POC discussed with patient and visitor. They agree w/ POC (2) with 38 completed weeks gestation Current Visit: Yes Status: Acute Subjective - Subjective Date of service: 04/08/22 Principal diagnosis: IUP @ 38.6 wks, IOL d/t IUGR Patient reports: movement normal, contractions (Starting to feel some contractions. ), no new complaints (s/p epidural), no vaginal bleeding Objective - Vital Signs Vital Signs: Vital Signs - 12hr 04/07/22 04/07/22 04/07/22 20:59 21:04 21:09 Temperature Pulse Rate 89 93 H 70 Respiratory Rate Blood Pressure O2 Sat by Pulse 100 99 100 Oximetry 04/07/22 04/07/22 04/07/22 21:12 21:15 21:19 Temperature Pulse Rate 97 H 97 H 86 Respiratory Rate Blood Pressure O2 Sat by Pulse 94 98 93 Oximetry 04/07/22 04/07/22 04/07/22 21:20 21:40 21:46 Temperature Pulse Rate 88 130 H Respiratory Rate Blood Pressure O2 Sat by Pulse 92 86 0 L Oximetry 04/07/22 04/07/22 04/07/22 21:53 21:55 21:59 Temperature Pulse Rate 89 121 H Respiratory Rate Blood Pressure O2 Sat by Pulse 0 L 82 L 86 Oximetry 04/07/22 04/07/22 04/07/22 22:04 22:17 22:22 Temperature Pulse Rate Respiratory Rate Blood Pressure O2 Sat by Pulse 82 L 83 L 89 Oximetry 04/07/22 04/07/22 04/07/22 22:30 22:34 22:36 Temperature Pulse Rate 92 H 84 Respiratory Rate Blood Pressure 94/69 O2 Sat by Pulse 85 87 Oximetry 04/07/22 04/07/22 04/07/22 22:39 22:41 22:44 Temperature 98.3 F Pulse Rate 87 79 Respiratory Rate Blood Pressure O2 Sat by Pulse 100 100 Oximetry 04/07/22 04/07/22 04/07/22 22:49 22:54 22:59 Temperature Pulse Rate 78 82 90 Respiratory Rate Blood Pressure O2 Sat by Pulse 100 100 100 Oximetry 04/07/22 04/07/22 04/07/22 23:04 23:09 23:14 Temperature Pulse Rate 81 85 99 H Respiratory Rate Blood Pressure O2 Sat by Pulse 100 100 100 Oximetry 04/07/22 04/07/22 04/07/22 23:19 23:24 23:29 Temperature Pulse Rate 90 87 83 Respiratory Rate Blood Pressure O2 Sat by Pulse 100 100 100 Oximetry 04/07/22 04/07/22 04/07/22 23:34 23:39 23:44 Temperature Pulse Rate 84 86 83 Respiratory Rate Blood Pressure O2 Sat by Pulse 100 100 100 Oximetry 04/07/22 04/07/22 04/07/22 23:49 23:54 23:59 Temperature Pulse Rate 89 97 H 88 Respiratory Rate Blood Pressure O2 Sat by Pulse 100 100 100 Oximetry 04/08/22 04/08/22 04/08/22 00:04 00:09 00:14 Temperature Pulse Rate 91 H 85 87 Respiratory Rate Blood Pressure O2 Sat by Pulse 100 100 100 Oximetry 04/08/22 04/08/22 04/08/22 00:19 00:28 00:33 Temperature Pulse Rate 96 H 87 83 Respiratory Rate Blood Pressure O2 Sat by Pulse 100 100 100 Oximetry 04/08/22 04/08/22 04/08/22 00:38 00:43 00:48 Temperature Pulse Rate 83 81 81 Respiratory Rate Blood Pressure O2 Sat by Pulse 100 100 100 Oximetry 04/08/22 04/08/22 04/08/22 00:53 00:58 01:03 Temperature Pulse Rate 80 78 74 Respiratory Rate Blood Pressure O2 Sat by Pulse 100 100 100 Oximetry 04/08/22 04/08/22 04/08/22 01:08 01:13 01:18 Temperature Pulse Rate 77 79 79 Respiratory Rate Blood Pressure O2 Sat by Pulse 100 100 100 Oximetry 04/08/22 04/08/22 04/08/22 01:23 01:28 01:33 Temperature Pulse Rate 79 80 80 Respiratory Rate Blood Pressure O2 Sat by Pulse 100 100 100 Oximetry 04/08/22 04/08/2204/08/22 01:38 01:43 01:48 Temperature Pulse Rate 81 80 79 Respiratory Rate Blood Pressure O2 Sat by Pulse 100 100 100 Oximetry 04/08/22 04/08/22 04/08/22 01:53 01:58 02:03 Temperature Pulse Rate 83 86 78 Respiratory Rate Blood Pressure O2 Sat by Pulse 100 100 100 Oximetry 04/08/22 04/08/22 04/08/22 02:08 02:20 02:21 Temperature 98.4 F Pulse Rate 79 90 86 Respiratory Rate Blood Pressure 127/63 O2 Sat by Pulse 100 100 Oximetry 04/08/22 04/08/22 04/08/22 02:25 02:30 02:35 Temperature Pulse Rate 81 91 H 85 Respiratory Rate Blood Pressure O2 Sat by Pulse 100 100 100 Oximetry 04/08/22 04/08/22 04/08/22 02:40 02:45 02:50 Temperature Pulse Rate 76 79 76 Respiratory Rate Blood Pressure O2 Sat by Pulse 100 100 100 Oximetry 04/08/22 04/08/22 04/08/22 02:55 03:00 03:05 Temperature Pulse Rate 88 73 77 Respiratory Rate Blood Pressure O2 Sat by Pulse 100 100 100 Oximetry 04/08/22 04/08/22 04/08/22 03:10 03:15 03:20 Temperature Pulse Rate 81 84 88 Respiratory Rate Blood Pressure O2 Sat by Pulse 100 100 100 Oximetry 04/08/22 04/08/22 04/08/22 03:25 03:30 03:35 Temperature Pulse Rate 76 78 84 Respiratory Rate Blood Pressure O2 Sat by Pulse 100 100 100 Oximetry 04/08/22 04/08/22 04/08/22 03:41 03:46 03:51 Temperature Pulse Rate 90 78 82 Respiratory Rate Blood Pressure O2 Sat by Pulse 99 100 100 Oximetry 04/08/22 04/08/22 04/08/22 03:56 04:01 04:06 Temperature Pulse Rate 70 72 77 Respiratory Rate Blood Pressure O2 Sat by Pulse 100 100 100 Oximetry 04/08/22 04/08/22 04/08/22 04:11 04:16 04:21 Temperature Pulse Rate 86 74 77 Respiratory Rate Blood Pressure O2 Sat by Pulse 100 100 100 Oximetry 04/08/22 04/08/22 04/08/22 04:26 04:31 04:36 Temperature Pulse Rate 67 69 68 Respiratory Rate Blood Pressure O2 Sat by Pulse 100 100 100 Oximetry 04/08/22 04/08/22 04/08/22 04:41 04:46 04:51 Temperature Pulse Rate 70 76 72 Respiratory Rate Blood Pressure O2 Sat by Pulse 100 100 100 Oximetry 04/08/22 04/08/22 04/08/22 04:56 05:01 05:08 Temperature Pulse Rate 73 90 76 Respiratory Rate Blood Pressure O2 Sat by Pulse 100 100 97 Oximetry 04/08/22 04/08/22 04/08/22 05:09 05:13 05:18 Temperature Pulse Rate 73 75 69 Respiratory 17 Rate Blood Pressure 133/86 O2 Sat by Pulse 100 100 Oximetry 04/08/22 04/08/22 04/08/22 05:23 05:29 05:33 Temperature Pulse Rate 71 71 75 Respiratory Rate Blood Pressure O2 Sat by Pulse 100 100 100 Oximetry 04/08/22 04/08/22 04/08/22 05:38 05:43 05:48 Temperature Pulse Rate 63 70 70 Respiratory Rate Blood Pressure O2 Sat by Pulse 100 100 100 Oximetry 04/08/22 04/08/22 04/08/22 05:53 05:58 06:03 Temperature Pulse Rate 72 67 68 Respiratory Rate Blood Pressure O2 Sat by Pulse 100 100 100 Oximetry 04/08/22 04/08/22 04/08/22 06:08 06:13 06:18 Temperature Pulse Rate 71 67 74 Respiratory 20 Rate Blood Pressure O2 Sat by Pulse 100 100 100 Oximetry 04/08/22 04/08/22 04/08/22 06:23 06:30 06:31 Temperature Pulse Rate 69 71 89 Respiratory Rate Blood Pressure O2 Sat by Pulse 99 97 92 Oximetry 04/08/22 04/08/22 04/08/22 06:35 06:40 06:45 Temperature Pulse Rate 76 68 61 Respiratory Rate Blood Pressure O2 Sat by Pulse 100 100 100 Oximetry 04/08/22 04/08/22 04/08/22 06:50 06:55 07:00 Temperature Pulse Rate 63 69 65 Respiratory Rate Blood Pressure O2 Sat by Pulse 100 100 100 Oximetry 04/08/22 04/08/22 04/08/22 07:18 07:23 07:30 Temperature Pulse Rate 84 71 73 Respiratory Rate Blood Pressure O2 Sat by Pulse 100 100 100 Oximetry 04/08/22 04/08/2204/08/22 07:36 07:40 07:46 Temperature Pulse Rate 81 72 72 Respiratory Rate Blood Pressure O2 Sat by Pulse 100 100 100 Oximetry 04/08/22 04/08/22 04/08/22 07:50 07:55 08:07 Temperature Pulse Rate 67 71 75 Respiratory Rate Blood Pressure O2 Sat by Pulse 100 100 99 Oximetry 04/08/22 04/08/22 04/08/22 08:11 08:12 08:17 Temperature Pulse Rate 62 72 69 Respiratory Rate Blood Pressure 141/92 O2 Sat by Pulse 100 100 Oximetry 04/08/22 04/08/22 04/08/22 08:18 08:21 08:23 Temperature Pulse Rate 58 L 69 73 Respiratory Rate Blood Pressure 137/80 133/87 O2 Sat by Pulse 100 Oximetry 04/08/22 04/08/22 04/08/22 08:27 08:28 08:31 Temperature Pulse Rate 68 66 68 Respiratory Rate Blood Pressure 127/84 O2 Sat by Pulse 100 100 Oximetry 04/08/22 04/08/22 04/08/22 08:34 08:36 08:39 Temperature Pulse Rate 65 70 67 Respiratory Rate Blood Pressure 125/83 137/86 O2 Sat by Pulse 100 Oximetry 04/08/22 04/08/22 04/08/22 08:41 08:42 08:44 Temperature Pulse Rate 65 71 60 Respiratory Rate Blood Pressure 137/86 135/86 O2 Sat by Pulse 99 Oximetry 04/08/22 04/08/22 04/08/22 08:47 08:48 08:49 Temperature Pulse Rate 65 73 65 Respiratory Rate Blood Pressure 125/77 O2 Sat by Pulse 100 94 Oximetry 04/08/22 04/08/22 04/08/22 08:52 08:54 08:57 Temperature Pulse Rate 65 53 L 53 L Respiratory Rate Blood Pressure 124/75 O2 Sat by Pulse 100 100 Oximetry 04/08/22 08:58 Temperature Pulse Rate 56 L Respiratory Rate Blood Pressure 119/76 O2 Sat by Pulse Oximetry - Exam Breasts: deferred Cardiovascular: Regular rate Lungs: Normal air movement Abdomen: Present: soft. Absent: tenderness Vulva: both: normal Uterus: Present: fundal height above umbilicus. Absent: tenderness FHR: category 2 Uterine Contraction Monitor Mode: Internal (placed after verbal consent obtained) Cervical Dilatation: 4.5 Cervical Effacement Percentage: 90 station: 0 Uterine Contraction Pattern: Regular Extremities: normal - Labs Labs: Abnormal Labs 04/06/22 01:20 RBC 3.44 L MCHC 35 H
--- NOTE | 2022-04-08 15:32 | Procedure Note ---
OB Delivery Note - Delivery Date of Delivery: 04/08/22 Surgeon: DEE RODRÍGUEZ Estimated blood loss: 500cc - Vaginal Delivery presentation: vertex Delivery position: OA Intrapartum events: none Delivery induction: misoprostol Delivery augmentation: pitocin Delivery monitor: external FHT, external uterine, internal FHT, internal uterine Route of delivery: Delivery placenta: spontaneous (intact) Delivery cord: nuchal cord (x2, tight. Double clamped with [place] clamps and cut. ) Episiotomy: none Delivery laceration: other (minor anterior labial minor, hemostatic, no repair required) Anesthesia: epidural Delivery comments: Moderate PPH d/t uterine atony, resolved with Methergine 0.2mg IM x1. Pitocin 30u IV bolus and 10uIM and Hemabate 250mcg IM and Cytotec 800mcg SL and manually uterine massage. - Infant A at 1 minute: 8 at 5 minutes: 9 Infant Gender: Female (5lb 15oz)
[2022-04-08] MEDS ORDERED: ACETAMINOPHEN 325 MG TAB PO PRN (16:00)
--- NOTE | 2022-04-08 19:15 | Post Anesthesia Evaluation ---
- Post Anesthesia Evaluation Patient Participated: Yes Airway Patent: Yes Stable Respiratory Function: Yes Nausea/Vomiting: No Temp > 96.8F: Yes Pain Manageable: Yes Adequeate Hydration: Yes Anesthesia Complications: No Block Receding Appropriately: Yes Patient on Ventilator: No
[2022-04-08] MEDS ORDERED: PROMETHAZINE 25 MG RECT SUPP PR PRN (23:09)
[2022-04-08] MEDS ORDERED: SENNOSIDES/DOCUSATE SODIUM 8.6/50 MG TAB PO PRN (23:09)
[2022-04-08] MEDS ORDERED: WITCH HAZEL/ GLYCERIN PAD TP PRN (23:09)
[2022-04-08] MEDS ORDERED: MAGNESIUM HYDROXIDE (MOM) ORAL LIQD UDC PO PRN (23:09)
[2022-04-08] MEDS ORDERED: PROMETHAZINE 25 MG TAB PO PRN (23:09)
[2022-04-08] MEDS ORDERED: DOCUSATE SODIUM 100 MG CAP PO PRN (23:09)
[2022-04-08] MEDS ORDERED: ONDANSETRON 4 MG/2 ML INJ IV PRN (23:09)
[2022-04-08] MEDS ORDERED: LANOLIN/ZINC/DIMETHICONE (LANSINOH) 7 GM TP PRN (23:09)
[2022-04-08] MEDS ORDERED: diphenhydrAMINE 25 MG CAP PO PRN (23:09)
[2022-04-09] MEDS: IBUPROFEN 800 MG TAB PO SCH ×2 (00:20→08:45)
[2022-04-09] MEDS: METHYLERGONOVINE 0.2 MG TABLET PO SCH ×3 (00:21→08:46)
[2022-04-09] MEDS: FERROUS SULFATE 325 MG TAB PO SCH ×2 (00:21→09:06)
[2022-04-09 05:43] LABS: Hematocrit 29.4 % (30.3-42.9); Hemoglobin 9.8 gm/dl (10.1-14.3)
--- NOTE | 2022-04-09 06:59 | Discharge Summary ---
Providers - Providers Date of Admission: 04/06/22 00:56 Date of discharge: 04/09/22 Attending physician: PAT PITTMAN MD 04/08/22 23:09 Consult to [employer] [CONS] Routine Reason For Exam: assistance with , SNS Primary care physician: PAT PITTMAN MD Hospitalization Reason for admission: induction of labor Delivery: Episiotomy: none Laceration: none Other procedures: none complications: none Discharge diagnosis: IUP at term delivered [place] baby: female Hospital course: S: Pt doing well. Voiding, ambulating, passing flatus. O: VSS. H/H 9.8/29.4, asymptomatic anemia of delivery. Fundus firm, minimal bleeding noted. A: 32 y.o. s/p . In good condition . P: Discharge home with instructions. Pt to scheduled visit in the office in 4 weeks. Condition at discharge: Good Disposition: 01 HOME / SELF CARE / HOMELESS - Discharge Diagnoses (1) IUGR (intrauterine growth restriction) affecting care of mother Status: Acute Qualifiers: Fetus number: single or unspecified fetus Trimester: third trimester Qualified Code(s): O36.5930 - Maternal care for other known or suspected poor growth, third trimester, not applicable or unspecified (2) with 38 completed weeks gestation Status: Acute Plan - Discharge Medications Prescriptions: Docusate Sodium [Colace] 100 mg PO BID PRN #60 capsule PRN Reason: Constipation Ferrous Sulfate [Feosol 325 MG tab] 325 mg PO QDAY #30 tablet Ibuprofen [Motrin] 800 mg PO Q8HR PRN #20 tablet PRN Reason: Pain, Moderate (4-6) - Provider Discharge Summary Activity: routine, no sex for 6 weeks, no heavy lifting 4 weeks, no strenuous exercise Diet: routine Instructions: routine Additional instructions: [] Smoking cessation referral if applicable(refer to patient education folder for contact #) [] Refer to [facility] Booklet Call your doctor immediately for: * Fever > 100.5 * Heavy vaginal bleeding ( >1 pad per hour) * Severe persistent headache * Shortness of breath * Reddened, hot, painful area to leg or breast * Drainage or odor from incision. * Keep incision clean and dry at all times and follow doctor's instructions regarding bathing/showering - Follow up plan Follow up: PAT PITTMAN MD [Primary Care Provider] - 7 Days (- Congratulations on the of your baby girl! - Thank you for allowing us to take care of you! - Please schedule your visit in the office in 4 weeks. - Should you have any questions or concerns after discharge, please do not hesitate to call the office at . )
[2022-04-09 08:44] VITALS: BP 113/78
[2022-04-09] MEDS ORDERED: TETANUS,DIPH,PERTUSS(ACELL) VACCINE 0.5 ML SYRINGE IM ONE (15:27)
== END 2022-04-09 18:25 | disposition home or self-care (01) | DRG 774 ==
LOC: TRG 00:12 → LD 00:15 → TRG 08:59 → OB 04-08 19:53
PROVIDERS: ADMIT Student in an Organized Health Care Education/Training Program; ATTEND Student in an Organized Health Care Education/Training Program
PROC: 10E0XZZ Delivery of Products of Conception, External Approach (ICD-10-PCS; principal; 2022-04-08)
PROC: 3E0R3BZ Introduction of Anesthetic Agent into Spinal Canal, Percutaneous Approach (ICD-10-PCS; 2022-04-08)
PROC: 00HU33Z Insertion of Infusion Device into Spinal Canal, Percutaneous Approach (ICD-10-PCS; 2022-04-08)
PROC: 3E0P7VZ Introduction of Hormone into Female Reproductive, Via Natural or Artificial Opening (ICD-10-PCS; 2022-04-08)
PROC: 3E0234Z Introduction of Serum, Toxoid and Vaccine into Muscle, Percutaneous Approach (ICD-10-PCS; 2022-04-09)
DX: O36.5930 Maternal care for other known or suspected poor fetal growth, third trimester, not applicable or unspecified (principal); O72.1 Other immediate postpartum hemorrhage; Z20.822 Contact with and (suspected) exposure to COVID-19; Z23 Encounter for immunization; Z37.0 Single live birth; Z3A.38 38 weeks gestation of pregnancy; O69.81X0 Labor and delivery complicated by cord around neck, without compression, not applicable or unspecified; O70.0 First degree perineal laceration during delivery; O90.81 Anemia of the puerperium
CPT/HCPCS: 36415; 85014; 85018; 85027; 86592; 86850; 86900; 86901; G0378; J3490; J2210; J2590; J3010; J7120; U0003